=== PATIENT | male | born 1990 | race Caucasian/White ===

== ENCOUNTER 2020-09-11 07:39 | Emergency (ER) | payer OTHER ==
[2020-09-11 09:21] LABS: HEMOGLOBIN 15.9 gm/dl (14.0-17.5); RED BLOOD COUNT 5.16 M/UL (4.20-5.50)
[2020-09-11 09:44] LABS: BUN/CREATININE RATIO 14 (0-10)
[2020-09-11] MEDS ORDERED: PEPCID20 MG PO (10:28)
[2020-09-11] MEDS ORDERED: ONDANSETRON ODT4 MG SL (10:28)
== END 2020-09-11 10:55 | disposition home or self-care (01) ==
LOC: ER1 07:39
PROVIDERS: Physician Assistant
DX: E86.0 Dehydration (principal); R11.2 Nausea with vomiting, unspecified; R51.9 Headache, unspecified; F19.90 Other psychoactive substance use, unspecified, uncomplicated; F17.200 Nicotine dependence, unspecified, uncomplicated
CPT/HCPCS: 80053; 80307; 81001; 83690; 85025; 96374; 96375; 99284; G0480; J1885; J2405